=== PATIENT | female | born 1995 | race Caucasian/White ===

== ENCOUNTER → 2022-12-15 | Outpatient (CLI) | payer OTHER ==
[2022-12-15 15:17] LABS: HEMATOCRIT 39.3 % (36.0-47.0); HEMOGLOBIN 13.2 g/dl (12.0-15.5); MEAN CORPUSCULAR HEMOGLOBIN 31.5 pg (27.0-33.0); MEAN CORPUSCULAR HGB CONC 33.6 g/dl (32.0-36.5); MEAN CORPUSCULAR VOLUME 93.8 fl (80.0-96.0); PLATELET COUNT, AUTOMATED 213 10^3/uL (150-450); RED BLOOD COUNT 4.19 10^6/uL (4.00-5.40); WHITE BLOOD COUNT 10.5 10^3/uL (4.0-10.0)
== END ==
LOC: M PLALAB 08:39
PROVIDERS: ATTEND Obstetrics & Gynecology
DX: Z34.02 Encounter for supervision of normal first pregnancy, second trimester (principal); Z3A.27 27 weeks gestation of pregnancy; Z23 Encounter for immunization
CPT/HCPCS: 36415; 82950; 85027; 86850; 86900; 86901; 90471; 90715; G0463

== ENCOUNTER 2023-02-13 14:40 | Inpatient (IN) | payer OTHER ==
[~2023-02-13] VITALS: Ht 160 cm; Wt 90.9 kg
[2023-02-13] VITALS (9 sets, daily range): BP systolic 127–163; BP diastolic 79–100; O2SAT 97
[2023-02-13] MEDS ORDERED: OXYTOCIN INJ 10UNITS/ML 1ML VIAL As Ordered ONE (14:50)
[2023-02-13] MEDS ORDERED: OXYTOCIN INJ 10UNITS/ML 1ML VIAL IM ONE (15:10)
[2023-02-13 15:13] LABS: CORD GAS ABE A -9.5; CORD GAS HCO3 A 20.8 MMOL/L; CORD GAS O2 SAT A 56.3 %; CORD GAS PCO2 A 62.7 mmHg; CORD GAS PH A 7.139 UNITS; CORD GAS SBC A 16.1 MMOL/L; CORD GAS TCO2 A 22.7 MMOL/L
[2023-02-13 15:15] LABS: CORD GAS ABE V -5.2; CORD GAS HCO3 V 24.1 MMOL/L; CORD GAS PCO2 V 61.9 mmHg; CORD GAS PH V 7.208 UNITS; CORD GAS PO2 V 18.5 mmHg; CORD GAS SBC V 18.6 MMOL/L
[2023-02-13] MEDS ORDERED: OXYTOCIN INJ 10UNITS/ML 1ML VIAL IM PRN (15:15)
[2023-02-13] MEDS ORDERED: VALA500T5 PO (15:28)
[2023-02-13] MEDS ORDERED: PRENTAB9 PO (15:28)
[2023-02-13] MEDS ORDERED: HOME MED LIST COMPLETE! XX SCH (15:30)
[2023-02-13 16:39] LABS: HEMOGLOBIN 13.3 g/dl (12.0-15.5); MEAN CORPUSCULAR HEMOGLOBIN 30.9 pg (27.0-33.0); MEAN CORPUSCULAR HGB CONC 34.1 g/dl (32.0-36.5); MEAN CORPUSCULAR VOLUME 90.5 fl (80.0-96.0); PLATELET COUNT, AUTOMATED 236 10^3/uL (150-450); RED BLOOD COUNT 4.31 10^6/uL (4.00-5.40); WHITE BLOOD COUNT 14.4 10^3/uL (4.0-10.0)
[2023-02-13] MEDS ORDERED: IBUPROFEN 600MG TAB PO PRN (20:55)
[2023-02-13] MEDS ORDERED: ACETAMINOPHEN 500 MG TAB PO PRN (20:55)
[2023-02-13] MEDS ORDERED: DOCUSATE SODIUM 100MG CAPSULE PO PRN (20:55)
[2023-02-13] MEDS ORDERED: METHYLERGONOVINE MALEATE 0.2 MG TAB PO PRN (20:55)
[2023-02-13] MEDS ORDERED: RHOGAM 300MCG (1500IU) INJ IM SCH (20:55)
[2023-02-13] MEDS ORDERED: DIBUCAINE 1% OINTMENT 30GM TOP PRN (20:55)
[2023-02-13] MEDS ORDERED: ACETAMINOPHEN TAB 650MG DOSE (2X325MG) PO PRN (20:55)
[2023-02-13] MEDS ORDERED: IBUPROFEN 800 MG TAB PO PRN (20:55)
[2023-02-14 06:00] VITALS: BP 118/76; O2SAT 97
[2023-02-14] MEDS ORDERED: CALCIUM CARBONATE 500 MG CHEW U/D PO PRN (07:15)
[2023-02-14] MEDS: PRENATAL VITAMINS CHEWABLE TABLET PO SCH (08:31)
[2023-02-14 18:00] VITALS: BP 134/82; O2SAT 100
[2023-02-15 06:00] VITALS: BP 127/81; O2SAT 98
[2023-02-15] MEDS ORDERED: MEASLES,MUMPS,RUBELLA VACCINE INJ (MMR-II) SC.IMMUN ONE (09:00)
[2023-02-15] MEDS ORDERED: ACET-683 PO (09:14)
[2023-02-15] MEDS ORDERED: IBUP80TA PO (09:14)
[2023-02-15] MEDS: PRENATAL VITAMINS CHEWABLE TABLET PO SCH (09:54)
== END 2023-02-15 12:50 | disposition home or self-care (01) | DRG 807 ==
LOC: M LDO 14:40 → M LDI 14:41 → M OBS 18:08
PROVIDERS: ADMIT Specialist; ATTEND Specialist
PROC: 10E0XZZ Delivery of Products of Conception, External Approach (ICD-10-PCS; principal; 2023-02-13)
DX: O42.013 Preterm premature rupture of membranes, onset of labor within 24 hours of rupture, third trimester (principal); Z37.0 Single live birth; Z3A.36 36 weeks gestation of pregnancy; O76 Abnormality in fetal heart rate and rhythm complicating labor and delivery; O70.0 First degree perineal laceration during delivery

== ENCOUNTER → 2025-03-12 | Outpatient (CLI) | payer OTHER ==
[~2025-03-12] MED LIST: ACET-683 PO; IBUP80TA PO; PRENTAB9 PO; VALA500T5 PO
[2025-03-12 13:52] LABS: PLATELET COUNT, AUTOMATED 217 10^3/uL (150-450)
[2025-03-12 14:51] LABS: Trichomonas vaginalis (AMP) NOT DETECTED (NEGATIVE)
[2025-03-12 15:14] LABS: HIV 1&2 SCREEN NEGATIVE (NEGATIVE)
[2025-03-12 15:16] LABS: GC DNA AMPLIFICATION NEGATIVE (NEGATIVE)
[2025-03-12 15:21] LABS: HEPATITIS C VIRUS ABY INDEX < 0.02 INDEX (<0.8)
== END ==
LOC: M PLALAB 11:15
PROVIDERS: ATTEND Specialist
DX: Z34.81 Encounter for supervision of other normal pregnancy, first trimester (principal)

== ENCOUNTER → 2025-03-12 | Outpatient (REF) | payer OTHER | LOC: M PLALAB 11:07 | PROVIDERS: ATTEND Specialist | DX: Z53.8 Procedure and treatment not carried out for other reasons (principal) ==

== ENCOUNTER → 2025-05-20 | Outpatient (CLI) | payer OTHER | LOC: M WHC 11:54 | PROVIDERS: ATTEND Obstetrics & Gynecology | DX: Z34.82 Encounter for supervision of other normal pregnancy, second trimester (principal); Z3A.20 20 weeks gestation of pregnancy ==

== ENCOUNTER → 2025-07-05 | Outpatient (CLI) | payer OTHER ==
[2025-07-05 16:14] LABS: PLATELET COUNT, AUTOMATED 194 10^3/uL (150-450)
== END ==
LOC: M PLALAB 08:40
PROVIDERS: ATTEND Midwife
DX: Z34.80 Encounter for supervision of other normal pregnancy, unspecified trimester (principal)